=== PATIENT | male | born 1970 | race African-American/Black ===

== ENCOUNTER 2024-04-10 00:54 | Emergency (ER) | payer MEDICAID ==
[~2024-04-10] VITALS: Ht 180.3 cm; Wt 99.8 kg
[2024-04-10] MEDS ORDERED: DOXY-326 PO ×2 (01:56→10:24)
[2024-04-10 02:02] VITALS: BP 132/78; TEMP 98.6; O2SAT 99
== END 2024-04-10 02:03 | disposition home or self-care (01) ==
LOC: ER 00:56
DX: S80.861A Insect bite (nonvenomous), right lower leg, initial encounter (principal); L03.115 Cellulitis of right lower limb; I10 Essential (primary) hypertension; Z88.0 Allergy status to penicillin; W57.XXXA Bitten or stung by nonvenomous insect and other nonvenomous arthropods, initial encounter; Y93.89 Activity, other specified; Y92.89 Other specified places as the place of occurrence of the external cause; Y99.8 Other external cause status

== ENCOUNTER 2025-04-21 01:29 | Emergency (ER) | payer MEDICAID ==
[~2025-04-21] VITALS: Ht 180.3 cm; Wt 113.4 kg
[~2025-04-21 01:29] MED LIST: DOXY-326 PO
[2025-04-21 02:55] LABS: APPEARANCE,URINE CLEAR (CLEAR); BLOOD, URINE 1+ Ery/uL (NEGATIVE); LEUKOCYTE ESTERASE ,URINE NEGATIVE (NEGATIVE); NITRITE, URINE NEGATIVE (NEGATIVE); UGLUCOSE NEGATIVE (NEGATIVE)
[2025-04-21 03:04] LABS: AMPHETAMINE, URINE POSITIVE (NEGATIVE); BARBITURATE, URINE NEGATIVE (NEGATIVE); BENZODIAZEPINE, URINE NEGATIVE (NEGATIVE); CANNABINOID, URINE POSITIVE (NEGATIVE); COCCAINE, URINE POSITIVE (NEGATIVE); OPIATE, URINE NEGATIVE (NEGATIVE)
[2025-04-21 03:14] LABS: ADD URINE CULTURE NO; SQUAMOUS EPITHELIAL CELL,UR 0-2 /HPF (None Seen)
[2025-04-21 08:38] LABS: PLATELET COUNT (AUTO) 276 K/uL (150-450); RED BLOOD CELL COUNT(AUTO) 4.42 MIL/uL (4.5-6.0); RED CELL DISTRIBUTION WIDTH 13.2 % (11.5-15.0); WHITE BLOOD COUNT (AUTO) 7.1 K/uL (4.3-11.0)
[2025-04-21 08:44] LABS: CALCIUM, SERUM 9.1 mg/dL (8.5-10.1); CREATININE 1.1 mg/dL (0.6-1.3); SODIUM SERUM 139 mmol/L (136-145); UREA NITROGEN, BLOOD 9 mg/dL (7-18)
[2025-04-21 08:50] LABS: ASPARTATE AMINOTRANSFERASE 18 U/L (15-37); TOTAL PROTEIN, SERUM 8.1 g/dL (6.4-8.2)
[2025-04-21 08:51] LABS: ALCOHOL, BLOOD < 3 mg/dL (0-10)
[2025-04-21] MEDS: IV NS 0.9% 1,000 ML BAG IV ONE (09:37)
[2025-04-21 11:25] VITALS: BP 155/87; TEMP 98.2; O2SAT 99
== END 2025-04-21 11:29 | disposition home or self-care (01) ==
LOC: ER 01:41
DX: F19.10 Other psychoactive substance abuse, uncomplicated (principal); F41.9 Anxiety disorder, unspecified; I10 Essential (primary) hypertension; F17.200 Nicotine dependence, unspecified, uncomplicated; Z88.0 Allergy status to penicillin; Z79.899 Other long term (current) drug therapy
CPT/HCPCS: 99284; 96360; 85025; 80048; 80076; 81001; 36415; 80143; 80320; 80307; J7030; G0480